=== PATIENT | male | born 1940 | race Caucasian/White ===

== ENCOUNTER 2020-09-28 16:11 | Observation (INO) | payer MEDICARE ==
[2020-09-28] MEDS ORDERED: Sodium Chloride 0.9% 10 ML Syringe FLUSH PRN (16:41)
[2020-09-28] MEDS ORDERED: Sodium Chloride 0.9% 1,000 ML IV SCH (16:45)
[2020-09-28] MEDS ORDERED: Sodium Chloride 0.9% 1,000 ML IV ONE (17:03)
--- NOTE | 2020-09-28 17:16 | PCM.HP.2 ---
H&P History of Present Illness - General Date of Service: 09/28/20 Admit Problem/Dx: Admission Diagnosis/Problem Admission Diagnosis/Problem Hypotension Source of Information: Patient, Provider History Limitations: Reports: No Limitations - History of Present Illness Initial Comments - Free Text/Narative: Murali was seen at [facility] today for post operative visit but had been having dizziness, lightheadedness since Saturday 09/23. It has progressive been getting worse. Since Saturday pm he has been getting nauseous in the evening but not vomiting. He had been taking his Diabetic and hypertensive medications as usual. He had Left total knee arthroplasty on 09/19, was discharged 09/20, surgeon was Dr Bills at [facility]. No complications. Had been doing PT/OT well but on Saturday and last few days he has been getting diaphoretic with his therapy treatments. He would sit down and drink some water and then was able to continue. He did not check his sugars at the time these events occurred. On exam today his blood pressure was 87/57 in clinic, WBC 13.0, Hgb 10.8(12 prior to surgery), platelets 456(prior were 206), Creatinine 1.5(baseline 1.2), BUN 61(previous 26), troponin 0.01, CRP pending. EKG showed RBBB with no ischemic changes per Abebe Gurrola PA-C who saw in clinic. He denies any fevers, chills, night sweats, no chest pain or shortness of breath, no abdominal pain, constipation or diarrhea. He did have 2 dark/black stools today which is new, and has not urinated much today. No rashes. His dressing was changed at his appt today, is due to see Dr Bills next week on 10/04. He was discharged with full TEDS hose to groin and has on currently. He was discharged with Aspirin bid for DVT prophylaxis. Abebe Gurrola PA-C called for direct admission for dehydration and further workup of his Leukocytosis. - Related Data Allergies/Adverse Reactions: Allergies Allergy/AdvReac Type Severity Reaction Status Date / Time No Known Allergies Allergy Verified 09/28/20 17:39 Home Medications: Home Meds Acetaminophen [Tylenol Extra Strength] 1,000 mg PO TID 09/28/20 [History] Aspirin [Aspirin EC] 325 mg PO BID 09/28/20 [History] Azelastine [Optivar 0.05% Ophth Soln] 1 drop EYEBOTH ASDIRECTED PRN 09/28/20 [History] Cyanocobalamin (Vitamin B12) [Vitamin B12] 1,000 mcg PO DAILY 09/28/20 [History] Docusate Sodium [Colace] 100 mg PO BID PRN 09/28/20 [History] Hydrocodone/Acetaminophen [Lorcet 5-325 mg Tablet] 1 - 2 each PO Q4H PRN 09/28/20 [History] Isosorbide Mononitrate [Imdur] 60 mg PO DAILY 09/28/20 [History] Lisinopril/Hydrochlorothiazide [Lisinopril-Hctz 20-12.5 mg Tab] 1 tab BID 09/28/20 [History] Vit C/Vit E AC/Lut/Copper/Zinc [Preservision Softgel] 1 each PO BID 09/28/20 [History] amLODIPine [Norvasc] 5 mg PO DAILY 09/28/20 [History] atorvaSTATin [Lipitor] 40 mg PO BEDTIME 09/28/20 [History] metFORMIN [Glucophage] 500 mg PO DAILY 09/28/20 [History] Past Medical History HEENT History: Reports: Cataract (bilateral), Glaucoma (bilateral) Cardiovascular History: Reports: CAD, Hypertension, Stents Gastrointestinal History: Reports: Colon Polyp Musculoskeletal History: Reports: Osteoarthritis (left knee) Endocrine/Metabolic History: Reports: Diabetes, Type II Oncologic (Cancer) History: Reports: Colon - Past Surgical History HEENT Surgical History: Reports: Cataract Surgery (bilateral) Cardiovascular Surgical History: Reports: Coronary Artery Stent GI Surgical History: Reports: Colon (Dr Nation, colon cancer had chemo/radiation), Hernia Repair/Other Musculoskeletal Surgical History: Reports: Hip Replacement (bilateral), Knee Replacement (left, 09/19/2020 Dr Bills) Social & Family History - Tobacco Use Tobacco Use Status *Q: Former Tobacco User (quit 01/12/1991) Tobacco Use Within Last Twelve Months: No - Alcohol Use Alcohol Use History: Yes Total Drinks Per Week Comment: 3-4 drinks/week Alcohol Use Frequency: Weekly - Living Situation & Occupation Living situation: Reports: Occupation: Retired H&P Review of Systems - Review of Systems: Review Of Systems: Comprehensive ROS is negative, except as noted in HPI. Exam - Exam Exam: See Below - Exam General: Alert, Oriented, Cooperative HEENT: PERRLA, Conjunctiva Clear, EOMI, Hearing Intact, Posterior Pharynx Clear. No: Mucosa Moist & [place] Neck: Trachea Midline. No: Lymphadenopathy Lungs: Clear to Auscultation, Normal Respiratory Effort Cardiovascular: Tachycardia GI/Abdominal Exam: Normal Bowel Sounds, Soft, Non-Tender, No Distention (Male) Exam: Deferred Rectal (Males) Exam: Deferred Extremities: Normal Capillary Refill, Pedal Edema (Full ANTONY hose BLE, 2+ LLE) Peripheral Pulses: 2+: Radial (L), Radial (R) Skin: Incision (Clean dressing in place on left knee) Neurological: Cranial Nerves Intact, Normal Speech, Normal Tone - Patient Data Lab Results Last 24 hrs: see HPI Sepsis Event Note - Evaluation Sepsis Screening Result: No Definite Risk *Q Meaningful Use (ADM) - VTE *Q VTE Mechanical Contraindications *Q: At Risk for Falls - VTE Risk Assess *Q Each Risk Factor Represents 1 Point: None Total Score 1 Point Risk Factors: 0 Each Risk Factor Represents 2 Points: None, Malignancy (present or previous) Total Score 2 Point Risk Factors: 2 Each Risk Factor Represents 3 Points: Age 75 Years or Greater Total Score 3 Point Risk Factors: 3 Each Risk Factor Represents 5 Points: Elective Major Lower Extremity Arthroplasty Total Score 5 Point Risk Factors: 5 Venous Thromboembolism Risk Factor Score *Q: 10 - Problem List (1) Leukocytosis SNOMED Code(s): 880723157, 949715351 ICD Code: D72.829 - ELEVATED WHITE BLOOD CELL COUNT, UNSPECIFIED Status: Acute Current Visit: Yes Problem Details: WBC 13.0 in clinic. (2) Hypotension due to hypovolemia SNOMED Code(s): 85601280 ICD Code: I95.89 - OTHER HYPOTENSION; E86.1 - HYPOVOLEMIA Status: Acute Current Visit: Yes Problem Details: hypotensive 87/57. (3) Dehydration SNOMED Code(s): 79616453 ICD Code: E86.0 - DEHYDRATION Status: Acute Current Visit: Yes Problem Details: Hypotensive at 87/57 in clinic. (4) ZEE (acute kidney injury) SNOMED Code(s): 31109565, 03603012 ICD Code: N17.9 - ACUTE KIDNEY FAILURE, UNSPECIFIED Status: Acute Current Visit: Yes Problem Details: Cr 1.5, baseline 1.2 (5) Black stool SNOMED Code(s): 369949803 ICD Code: K92.1 - MELENA Status: Acute Current Visit: Yes Onset Date: ~09/28/20 (6) Status post left knee replacement SNOMED Code(s): 8436744931013, 335936489, 7360610607243 ICD Code: Z96.652 - PRESENCE OF LEFT ARTIFICIAL KNEE JOINT Status: Acute Current Visit: Yes Onset Date: ~09/19/20 Problem Details: Dr Bills (7) Diabetes SNOMED Code(s): 62731951 ICD Code: E11.9 - TYPE 2 DIABETES MELLITUS WITHOUT COMPLICATIONS Status: Chronic Current Visit: Yes Qualifiers: Diabetes mellitus terminal operations manager insulin use: without assisted use (8) Hypertension SNOMED Code(s): 76177956 ICD Code: I10 - ESSENTIAL (PRIMARY) HYPERTENSION Status: Chronic Current Visit: Yes (9) CAD (coronary artery disease) SNOMED Code(s): 04789716 ICD Code: I25.10 - ATHSCL HEART DISEASE OF [place] CORONARY ARTERY W/O ANG PCTRS Status: Chronic Current Visit: Yes (10) History of colon cancer SNOMED Code(s): 292677018 ICD Code: Z85.038 - PERSONAL HISTORY OF MALIGNANT NEOPLASM OF LARGE INTESTINE Status: Chronic Current Visit: Yes Problem List Initiated/Reviewed/Updated: Yes Orders Last 24hrs: Active Orders 24 hr Category Date Time Status Patient Status [ADT] Routine ADT 09/28/20 16:42 Active Blood Glucose Check, Bedside [RC] DAILY Care 09/29/20 06:00 Active Oxygen Therapy [RC] PRN Care 09/28/20 16:42 Active Up With Assistance [RC] ASDIRECTED Care 09/28/20 16:41 Active Up to Chair [RC] ASDIRECTED Care 09/28/20 16:41 Active VTE/DVT Education [RC] Per Unit Routine Care 09/28/20 16:42 Active Vital Signs [RC] Q4H Care 09/28/20 16:42 Active OT Evaluation and Treatment [CONS] Routine Cons 09/28/20 16:41 Active PT Evaluation and Treatment [CONS] Routine Cons 09/28/20 16:41 Active Consistent Carbohydrate Diet [DIET] Diet 09/28/20 Dinner Active BASIC METABOLIC PANEL,BMP [CHEM] Routine Lab 09/29/20 06:00 Ordered CBC WITH AUTO DIFF [HEME] Routine Lab 09/29/20 06:00 Ordered CULTURE BLOOD [BC] Urgent Lab 09/28/20 16:44 Ordered CULTURE BLOOD [BC] Urgent Lab 09/28/20 16:44 Ordered UA W/MICROSCOPIC [URIN] Routine Lab 09/28/20 16:41 Ordered Sodium Chloride 0.9% [Normal Saline] 1,000 ml Med 09/28/20 17:03 Ordered IV .BOLUS Sodium Chloride 0.9% [Normal Saline] 1,000 ml Med 09/28/20 18:04 Ordered IV ASDIRECTED Sodium Chloride 0.9% [Saline Flush] Med 09/28/20 16:41 Active 10 ml FLUSH ASDIRECTED PRN Antiembolic Hose [OM.PC] Per Unit Routine Oth 09/28/20 16:42 Ordered Blood Culture x2 Reflex Set [OM.PC] Urgent Oth 09/28/20 16:41 Ordered Saline Lock Insert [OM.PC] Routine Oth 09/28/20 16:41 Ordered Resuscitation Status Routine Resus Stat 09/28/20 16:41 Ordered Medication Orders Sodium Chloride (Normal Saline) 1,000 mls @ 999 mls/hr IV .BOLUS ONE Stop: 09/28/20 18:03 Sodium Chloride (Normal Saline) 1,000 mls @ 125 mls/hr IV ASDIRECTED [place] Sodium Chloride (Sodium Chloride 0.9% 10 Ml Syringe) 10 ml FLUSH ASDIRECTED PRN PRN Reason: Keep Vein Open Assessment/Plan Comment:: 1. Admit for observation for hypotension, dehydration, ZEE, s/p L TKA, black stools. 2. Hypotension/dehydration/ZEE: NS 1 liter bolus, then at 125 ml/hr, recheck BMP tomorrow. 3. Black stools/history of colon cancer/on aspirin s/p TKA: occult stool x 3. CBC tomorrow. Hgb 10.8 in clinic. 4. s/p L TKA: Aspirin bid, PT/OT evaluate & treat. He had been taking Extra Strength Tylenol as needed pain as Hydrocodone/APAP that was prescribed made him feel loopy so he stopped taking. 5. Leukocytosis: UA with micro, BC x 2 for possible source, may also be secondary to dehydration, afebrile. Continue to monitor and adjust as needed. 6. Diet: Regular. 7. DM: eats regular diet at home, on oral medications will continue here, blood glucose checks daily. 8. DVT prophylaxis: Full bilateral TEDS, use patient's own. Aspirin bid. 9. CODE STATUS: FULL. 10. Discharge planning: anticipate 24-48 hours for IV fluids and further studies. His is bringing his medications in for us to use. - Mortality Measure Prognosis:: Good
[2020-09-28] MEDS ORDERED: Docusate Sodium 100 MG Cap PO PRN (18:07)
[2020-09-28] MEDS: Sodium Chloride 0.9% 1,000 ML IV SCH (18:50)
[2020-09-28] MEDS ORDERED: atorvaSTATin 40 MG Tab***OWN MED PO ONE (22:30)
[2020-09-29] MEDS: Sodium Chloride 0.9% 1,000 ML IV SCH ×3 (02:45→19:57)
[2020-09-29] MEDS ORDERED: Aspirin 325 MG Tab.EC *PTOM PO SCH (09:00)
[2020-09-29] MEDS: metFORMIN 500 MG Tab *PTOM PO SCH (09:15)
[2020-09-29] MEDS: Pantoprazole 40 MG Tab.CR PO SCH (10:25)
[2020-09-29] MEDS: Aspirin 81 MG Tab.EC PO SCH ×2 (10:25→20:56)
--- NOTE | 2020-09-29 10:53 | PCM.PN ---
- General Info Date of Service: 09/29/20 Subjective Update: Murali states slept well, had another black stool. Occult was positive last night, aspirin held. BP improved today, held BP medications last night. No pain. No chest pain, abdominal pain. No nausea or vomiting. Urinating well. Spoke with Telma, Dr Bills's PA, he was on Aspirin 325 mg daily since he was already on a full aspirin they had just increased to bid rather than doing the usual protocol of Aspirin 81 mg bid for 4 weeks. Discussed positive occult stools and drop in Hgb since surgery, they were in agreement with reducing Aspirin to 81 mg bid and add PPI. He is to follow up with Telma on Wednesday 10/04. - Patient Data Vitals - Most Recent: Last Vital Signs Temp 97.8 F 09/29/20 08:00 Pulse 96 09/29/20 08:00 Resp 14 09/29/20 08:00 BP 148/70 H 09/29/20 08:00 Pulse Ox 97 09/29/20 08:00 Orthostatic Blood Pressure [ 148/78 Standing] Orthostatic Blood Pressure [ 140/73 Sitting] Orthostatic Blood Pressure [ 126/68 Supine] Weight - Most Recent: 232 lb 8 oz I&O - Last 24 Hours: Intake & Output 09/28/20 09/29/20 09/29/20 22:59 06:59 14:59 Intake Total 1900 980 Output Total 200 900 Balance 1700 80 Lab Results Last 24 Hours: Laboratory Results - last 24 hr 09/28/20 09/29/20 09/29/20 Range/Units 18:52 06:00 06:00 WBC 8.8 (3.2-10.1) x10-3/uL RBC 3.01 L (3.90-5.90) x10(6)uL Hgb 9.1 L (12.9-17.7) g/dL Hct 26.6 L (38.3-50.1) % MCV 88.2 (80.8-98.7) fL MCH 30.1 (27.0-33.3) pg MCHC 34.1 (28.7-35.3) g/dL RDW 13.4 (12.4-15.0) % Plt Count 386 (117-477) x10(3)uL MPV 6.5 L (6.7-11.0) fL Neut % (Auto) 70.8 (40.3-71.8) % Lymph % (Auto) 16.4 (15.8-45.3) % [place] % (Auto) 8.4 (5.5-15.2) % Eos % (Auto) 3.6 (0.1-6.8) % Baso % (Auto) 0.8 (0.3-3.8) % Neut # (Auto) 6.2 (1.7-6.9) x10-3/uL Lymph # (Auto) 1.4 (0.5-4.5) x10-3/uL [place] # (Auto) 0.7 (0.0-1.2) x10-3/uL Eos # (Auto) 0.3 (0.0-0.6) x10-3/uL Baso # (Auto) 0.1 (0.0-0.3) x10-3/uL Sodium 145 (135-145) mmol/L Potassium 4.2 (3.5-5.3) mmol/L Chloride 108 (100-110) mmol/L Carbon Dioxide 30 (21-32) mmol/L BUN 59 H (7-18) mg/dL Creatinine 1.1 (0.70-1.30) mg/dL Est Cr Clr Drug Dosing 63.56 mL/min Estimated GFR (MDRD) > 60 (>60) BUN/Creatinine Ratio 53.6 H (9-20) Glucose 157 H (80-116) mg/dL Calcium 8.4 L (8.6-10.2) mg/dL Urine Color Yellow (YELLOW) Urine Appearance Clear (CLEAR) Urine pH 5.0 (5.0-6.5) Ur Specific [place] 1.015 (1.010-1.025) Urine Protein Negative (NEGATIVE) mg/dL Urine Glucose (UA) Normal (NORMAL) mg/dL Urine Ketones Negative (NEGATIVE) mg/dL Urine Occult Blood Negative (NEGATIVE) Urine Nitrite Negative (NEGATIVE) Urine Bilirubin Small H (NEGATIVE) Urine Urobilinogen Normal (NEGATIVE) mg/dL Ur Leukocyte Esterase Negative (NEGATIVE) U Hyaline Cast (Auto) Few H (NS) Urine RBC 0-5 (0-5) Urine WBC 0-5 (0-5) Ur Squamous Epith Cells Few H (NS,R,O) Urine Bacteria Few H (NS) Ian Results Last 24 Hours: Microbiology 09/28/20 20:00 Occult Blood - Preliminary Stool / Feces Med Orders - Current: Current Medications Acetaminophen (Acetaminophen 500 Mg TabOwn Med) 1,000 mg PO TID [facility] Last Admin: 09/29/20 09:15 Dose: 1,000 mg Documented by: Aspirin (Aspirin 81 Mg Tab.Ec) 81 mg PO BID [facility] Last Admin: 09/29/20 10:25 Dose: 81 mg Documented by: Atorvastatin Calcium (Atorvastatin 40 Mg TabOwn Med) 40 mg PO BEDTIME [facility] Docusate Sodium (Docusate Sodium 100 Mg Cap) 100 mg PO BID PRN PRN Reason: Constipation Sodium Chloride (Normal Saline) 1,000 mls @ 125 mls/hr IV ASDIRECTED [facility] Last Admin: 09/29/20 02:45 Dose: 125 mls/hr Documented by: Metformin HCl (Metformin 500 Mg Tab *Ptom) 500 mg PO DAILY [facility] Last Admin: 09/29/20 09:15 Dose: 500 mg Documented by: Pantoprazole Sodium (Pantoprazole 40 Mg Tab.Cr) 40 mg PO DAILY@0600 [facility] Last Admin: 09/29/20 10:25 Dose: 40 mg Documented by: Sodium Chloride (Sodium Chloride 0.9% 10 Ml Syringe) 10 ml FLUSH ASDIRECTED PRN PRN Reason: Keep Vein Open Discontinued Medications Acetaminophen (Acetaminophen 500 Mg TabOwn Med) 1,000 mg PO NOW ONE Stop: 09/28/20 23:16 Last Admin: 09/28/20 23:12 Dose: 1,000 mg Documented by: Atorvastatin Calcium (Atorvastatin 40 Mg TabOwn Med) 40 mg PO NOW ONE Stop: 09/28/20 22:31 Last Admin: 09/28/20 22:28 Dose: 40 mg Documented by: Sodium Chloride (Normal Saline) 1,000 mls @ 125 mls/hr IV ASDIRECTED [facility] Sodium Chloride (Normal Saline) 1,000 mls @ 999 mls/hr IV .BOLUS ONE Stop: 09/28/20 18:03 Last Admin: 09/28/20 17:40 Dose: 999 mls/hr Documented by: - Exam General: Alert, Oriented, Cooperative Lungs: Clear to Auscultation, Normal Respiratory Effort Cardiovascular: Regular Rate, Regular Rhythm GI/Abdominal Exam: Normal Bowel Sounds, Soft, Non-Tender, No Distention Extremities: Pedal Edema (L>R, Full TEDS in place) Peripheral Pulses: 2+: Radial (L), Radial (R) Wound/Incisions: Dressing Dry and Intact (left knee) - Patient Data Lab Results Last 24 hrs: Laboratory Results - last 24 hr 09/28/20 09/29/20 09/29/20 Range/Units 18:52 06:00 06:00 WBC 8.8 (3.2-10.1) x10-3/uL RBC 3.01 L (3.90-5.90) x10(6)uL Hgb 9.1 L (12.9-17.7) g/dL Hct 26.6 L (38.3-50.1) % MCV 88.2 (80.8-98.7) fL MCH 30.1 (27.0-33.3) pg MCHC 34.1 (28.7-35.3) g/dL RDW 13.4 (12.4-15.0) % Plt Count 386 (117-477) x10(3)uL MPV 6.5 L (6.7-11.0) fL Neut % (Auto) 70.8 (40.3-71.8) % Lymph % (Auto) 16.4 (15.8-45.3) % [place] % (Auto) 8.4 (5.5-15.2) % Eos % (Auto) 3.6 (0.1-6.8) % Baso % (Auto) 0.8 (0.3-3.8) % Neut # (Auto) 6.2 (1.7-6.9) x10-3/uL Lymph # (Auto) 1.4 (0.5-4.5) x10-3/uL [place] # (Auto) 0.7 (0.0-1.2) x10-3/uL Eos # (Auto) 0.3 (0.0-0.6) x10-3/uL Baso # (Auto) 0.1 (0.0-0.3) x10-3/uL Sodium 145 (135-145) mmol/L Potassium 4.2 (3.5-5.3) mmol/L Chloride 108 (100-110) mmol/L Carbon Dioxide 30 (21-32) mmol/L BUN 59 H (7-18) mg/dL Creatinine 1.1 (0.70-1.30) mg/dL Est Cr Clr Drug Dosing 63.56 mL/min Estimated GFR (MDRD) > 60 (>60) BUN/Creatinine Ratio 53.6 H (9-20) Glucose 157 H (80-116) mg/dL Calcium 8.4 L (8.6-10.2) mg/dL Urine Color Yellow (YELLOW) Urine Appearance Clear (CLEAR) Urine pH 5.0 (5.0-6.5) Ur Specific [place] 1.015 (1.010-1.025) Urine Protein Negative (NEGATIVE) mg/dL Urine Glucose (UA) Normal (NORMAL) mg/dL Urine Ketones Negative (NEGATIVE) mg/dL Urine Occult Blood Negative (NEGATIVE) Urine Nitrite Negative (NEGATIVE) Urine Bilirubin Small H (NEGATIVE) Urine Urobilinogen Normal (NEGATIVE) mg/dL Ur Leukocyte Esterase Negative (NEGATIVE) U Hyaline Cast (Auto) Few H (NS) Urine RBC 0-5 (0-5) Urine WBC 0-5 (0-5) Ur Squamous Epith Cells Few H (NS,R,O) Urine Bacteria Few H (NS) Result Diagrams: 09/29/20 06:00 09/29/20 06:00 Ian Results Last 24 hrs: Microbiology 09/28/20 20:00 Occult Blood - Preliminary Stool / Feces Sepsis Event Note - Evaluation Sepsis Screening Result: No Definite Risk - Focused Exam Vital Signs: Vital Signs Temp Pulse Resp BP Pulse Ox 09/29/20 08:00 97.8 F 96 14 148/70 H 97 09/29/20 06:00 98.1 F 83 18 128/73 94 L 09/28/20 23:28 98.0 F 84 18 133/80 95 - Problem List & Annotations (1) Leukocytosis SNOMED Code(s): 983434130, 272736729 Code(s): D72.829 - ELEVATED WHITE BLOOD CELL COUNT, UNSPECIFIED Status: Resolved Current Visit: Yes Annotation/Comment:: WBC 13.0 in clinic, today 8.8. No source of infection. UA was negative. Incision C/D/I. Resolved with IVF. (2) Hypotension due to hypovolemia SNOMED Code(s): 82368085 Code(s): I95.89 - OTHER HYPOTENSION; E86.1 - HYPOVOLEMIA Status: Resolved Current Visit: Yes Annotation/Comment:: hypotensive 87/57 on admission. This morning 120/73 prior to medications. (3) Dehydration SNOMED Code(s): 28464443 Code(s): E86.0 - DEHYDRATION Status: Acute Current Visit: Yes Annotation/Comment:: Improved. (4) ZEE (acute kidney injury) SNOMED Code(s): 58187472, 70735827 Code(s): N17.9 - ACUTE KIDNEY FAILURE, UNSPECIFIED Status: Acute Current Visit: Yes Annotation/Comment:: Cr 1.5, improved to 1.1, BUN still elevated at 59. (5) Black stool SNOMED Code(s): 230013309 Code(s): K92.1 - MELENA Status: Acute Current Visit: Yes Onset Date: ~09/28/20 Annotation/Comment:: positive occult. Decrease Asa to 81 mg bid, add Protonix 40 mg daily. (6) Status post left knee replacement SNOMED Code(s): 8869126348777, 620156751, 5156851361269 Code(s): Z96.652 - PRESENCE OF LEFT ARTIFICIAL KNEE JOINT Status: Acute Current Visit: Yes Onset Date: ~09/19/20 Annotation/Comment:: Dr Bills (7) Diabetes SNOMED Code(s): 70079872 Code(s): E11.9 - TYPE 2 DIABETES MELLITUS WITHOUT COMPLICATIONS Status: Chronic Current Visit: Yes Qualifiers: Diabetes mellitus fdc insulin use: without fdc use (8) Hypertension SNOMED Code(s): 65087770 Code(s): I10 - ESSENTIAL (PRIMARY) HYPERTENSION Status: Chronic Current Visit: Yes (9) CAD (coronary artery disease) SNOMED Code(s): 83281643 Code(s): I25.10 - ATHSCL HEART DISEASE OF [place] CORONARY ARTERY W/O ANG PCTRS Status: Chronic Current Visit: Yes (10) History of colon cancer SNOMED Code(s): 280810177 Code(s): Z85.038 - PERSONAL HISTORY OF MALIGNANT NEOPLASM OF LARGE INTESTINE Status: Chronic Current Visit: Yes - Problem List Review Problem List Initiated/Reviewed/Updated: Yes - My Orders Last 24 Hours: My Active Orders 09/28/20 Dinner Regular Diet [DIET] 09/28/20 16:41 Up With Assistance [RC] ASDIRECTED Up to Chair [RC] ASDIRECTED OT Evaluation and Treatment [CONS] Routine PT Evaluation and Treatment [CONS] Routine Sodium Chloride 0.9% [Saline Flush] 10 ml FLUSH ASDIRECTED PRN Blood Culture x2 Reflex Set [OM.PC] Urgent Saline Lock Insert [OM.PC] Routine Resuscitation Status Routine 09/28/20 16:42 Patient Status [ADT] Routine Oxygen Therapy [RC] PRN Vital Signs [RC] 08,12,16,20,00,04 Antiembolic Hose [OM.PC] Per Unit Routine 09/28/20 16:58 CULTURE BLOOD [BC] Urgent 09/28/20 17:05 CULTURE BLOOD [BC] Urgent 09/28/20 18:04 Sodium Chloride 0.9% [Normal Saline] 1,000 ml IV ASDIRECTED 09/28/20 18:07 Docusate Sodium [Colace] 100 mg PO BID PRN 09/28/20 20:00 OCCULT BLOOD SCREEN [OP] Routine 09/28/20 21:00 Acetaminophen [Tylenol Extra Strength] 1,000 mg PO TID 09/29/20 06:00 Blood Glucose Check, Bedside [RC] DAILY OCCULT BLOOD SCREEN [OP] Routine 09/29/20 09:00 metFORMIN [Glucophage] 500 mg PO DAILY 09/29/20 09:45 Pantoprazole [ProTONIX] 40 mg PO DAILY@0600 09/29/20 10:00 Aspirin [Halfprin] 81 mg PO BID 09/29/20 21:00 atorvaSTATin [Lipitor] 40 mg PO BEDTIME - Plan Plan:: 1. Hypotension/dehydration/ZEE: Improving, NS 125 ml/hr, recheck BMP tomorrow. 2. Black stools/history of colon cancer/on aspirin s/p TKA: occult stool positive. Hgb 9.1, repeat CBC tomorrow. Add Protonix 40 mg daily. 3. s/p L TKA: Aspirin decrease to 81 mg bid, add Protonix 40 mg daily x 4 weeks. Follow up with Telma at Dr Bills's office next Wednesday 10/04. PT/OT evaluate & treat. He had been taking Extra Strength Tylenol as needed pain. 4. Leukocytosis: UA negative. BC pending. secondary to dehydration, afebrile. Continue to monitor and adjust as needed. 5. DVT prophylaxis: Full bilateral TEDS, use patient's own. Aspirin 81 bid. 6. Discharge planning: anticipate another 24 hours for IV fluids, if Hgb remains stable and blood pressures are controlled, possible discharge tomorrow.
[2020-09-29] MEDS ORDERED: Lisinopril 20 MG Tab PO ONE (11:15)
[2020-09-29] MEDS: amLODIPine 5 MG Tab *PTOM PO SCH (11:49)
[2020-09-29] MEDS: Isosorbide Mononitrate 60 MG Tab.ER *PTOM PO SCH (11:50)
[2020-09-29] MEDS ORDERED: atorvaSTATin 40 MG Tab***OWN MED PO SCH (21:00)
[2020-09-30] MEDS: Sodium Chloride 0.9% 1,000 ML IV SCH (03:41)
[2020-09-30] MEDS: Pantoprazole 40 MG Tab.CR PO SCH ×2 (06:08→06:41)
[2020-09-30] MEDS: metFORMIN 500 MG Tab *PTOM PO SCH (08:30)
[2020-09-30] MEDS: Aspirin 81 MG Tab.EC PO SCH (08:32)
[2020-09-30] MEDS: Isosorbide Mononitrate 60 MG Tab.ER *PTOM PO SCH (08:33)
[2020-09-30] MEDS: amLODIPine 5 MG Tab *PTOM PO SCH (08:33)
--- NOTE | 2020-09-30 20:18 | DISCH ---
DISCHARGE DATE: 09/30/2020 ADMISSION DIAGNOSES: 1. Acute kidney injury. 2. Dehydration. 3. Status post left knee replacement. 4. Hypertension. 5. Type 2 diabetes. DISCHARGE DIAGNOSES: 1. Dehydration, improved. 2. Anemia. 3. Melena stools. 4. Hypertension. 5. Type 2 diabetes. 6. Status post knee replacement. BRIEF HISTORY: Murali is a 79-year-old male who had knee replacement on September 19, was admitted 2 days ago for lightheadedness, acute kidney injury in the hospital. He was found to have black tarry stools x2. Dr. Hopkins contacted Orthopedics and aspirin was reduced to 81 mg b.i.d. and Protonix was added. He got fluids most of his stay. His hemoglobin dropped down to 8.2, but thought to be dilutional. He did not have any signs of active bleeding. His vital signs have remained stable including his blood pressure which was 134/76 at discharge. I discharged him home. I stopped lisinopril-hydrochlorothiazide. We will continue with Norvasc. We will also continue the PPI and aspirin. Follow up with PCP on Saturday, and has orthopedic appointment on Saturday. I spent more than 35 minutes in the discharge of the patient. /[id number] JENELLE/RIVKA
== END 2020-09-30 10:25 | disposition home or self-care (01) ==
LOC: FB.MS 16:23
PROVIDERS: ADMIT Family Medicine; ATTEND Family Medicine
DX: E86.0 Dehydration (principal); I95.89 Other hypotension; E86.1 Hypovolemia; N17.9 Acute kidney failure, unspecified; D64.9 Anemia, unspecified; K92.1 Melena; E11.9 Type 2 diabetes mellitus without complications; I10 Essential (primary) hypertension; I25.10 Atherosclerotic heart disease of native coronary artery without angina pectoris; D72.829 Elevated white blood cell count, unspecified; Z87.891 Personal history of nicotine dependence; Z79.82 Long term (current) use of aspirin; Z79.899 Other long term (current) drug therapy; Z86.010 Personal history of colon polyps; Z85.038 Personal history of other malignant neoplasm of large intestine; Z98.890 Other specified postprocedural states; Z96.652 Presence of left artificial knee joint
CPT/HCPCS: 36415; 80048; 81001; 82270; 85025; 87040; 97161-GP; A9270-GY; G0378; G0379; J7030

== ENCOUNTER 2021-01-22 11:23 | Emergency (ER) | payer MEDICARE ==
[2021-01-22] MEDS ORDERED: Aspirin 81 MG Tab.Chew PO ONE (11:25)
--- NOTE | 2021-01-22 11:45 | EDM.PDOC ---
ED HPI GENERAL MEDICAL PROBLEM - General Stated Complaint: abnormal ekg Time Seen by Provider: 01/22/21 11:36 Source of Information: Reports: Patient History Limitations: Reports: No Limitations - History of Present Illness INITIAL COMMENTS - FREE TEXT/NARRATIVE: 80-year-old male who presents to the emergency department as a transfer from the walk-in clinic secondary to elevated troponin and abnormal EKG. The patient tells me that beginning on 01/18/2021 at about noon he had sudden onset of profuse diaphoresis associated with feeling lightheaded and near syncopal and when he would rest and become recumbent, his symptoms would go away and then when he tried to get up and walk around his symptoms would come back. He reports he has been feeling very off balance and dizzy and has had 3 falls since 01/18/2021. There were was no syncopal episode associated with any of these falls. He reports that the diaphoresis has been intermittent as well. He has had no chest pain or feelings of shortness of breath. He has had no nausea or vomiting. There has been no blood in his stools. His stools are dark but he is on iron supplementation and the stools are not changed from previous. He also developed hiccups on Saturday afternoon following this episode and he has developed an irritated throat pain that feels somewhat raw and a mild cough since then as well. The hiccups have been intermittent but are present now. He has been able to eat and drink normally there have been no fevers or chills. He does feel today that he is feeling better than he has on any other day in that he is feeling less dizzy with sitting and standing and has actually been able to walk around with less symptoms than before. He had orthostatic vital signs performed at the walk-in clinic and they were normal and static changes. Apparently, the patient had episodes in October/November where he had diaphoresis and dizziness and actually had a syncopal episode and was admitted to [facility] in [place] have an anemia and GI blood loss. He had a fairly extensive workup and it was felt that he had areas in his colon that were bleeding that will were addressed by the climatology professor. The patient apparently had his blood rechecked on 01/19/2021 and he initially told me his hemoglobin was 8.8 but apparently was 14. He has never had any chest pain or abdominal pain associated with this. He's not had any arm or back pain associated with this. In the walk-in clinic he had an EKG that was performed and looks unchanged from previous EKG in September 2020. He had blood tests performed which showed a white blood cell count of 8.2 and hemoglobin of 13.1 with a normal platelet count. Profile was normal with BUN of 19 and a creatinine of 1.2. His glucose was 139. His sodium was 143 and his potassium was 4.5. LFTs were performed and they were normal. The troponin was performed and it was 270.1. This is the high sensitivity troponin and the upper limit of normal is 60. He was given aspirin 324 mg orally. No dysuria or hematuria there are no other associated signs or symptoms. There are no other modifying factors. Onset: Other Duration: Constant (01/18/2021 is somewhat improved today.) Location: Reports: Other (No pain.) Quality: Reports: Other (Not applicable) Improves with: Reports: Rest (And lying down) Worsens with: Reports: Other (Sitting and standing and trying to walk), Movement Context: Reports: Other (As above) Associated Symptoms: Reports: No Other Symptoms (Except as above.) Treatments RN CORRECTIONS: Reports: Other (see below) (Nothing except as above.) - Related Data Allergies Allergy/AdvReac Type Severity Reaction Status Date / Time No Known Allergies Allergy Verified 09/28/20 17:39 Home Meds: Home Meds Acetaminophen [Tylenol Extra Strength] 1,000 mg PO TID 09/28/20 [History] Azelastine [Optivar 0.05% Ophth Soln] 1 drop EYEBOTH ASDIRECTED PRN 09/28/20 [History] Cyanocobalamin (Vitamin B12) [Vitamin B12] 1,000 mcg PO DAILY 09/28/20 [History] Docusate Sodium [Colace] 100 mg PO BID PRN 09/28/20 [History] Hydrocodone/Acetaminophen [Lorcet 5-325 mg Tablet] 1 - 2 each PO Q4H PRN 09/28/20 [History] Isosorbide Mononitrate [Imdur] 60 mg PO DAILY 09/28/20 [History] Vit C/Vit E AC/Lut/Copper/Zinc [Preservision Lutein Softgel] 1 each PO BID 09/28/20 [History] amLODIPine [Norvasc] 5 mg PO DAILY 09/28/20 [History] atorvaSTATin [Lipitor] 40 mg PO BEDTIME 09/28/20 [History] metFORMIN [Glucophage] 500 mg PO DAILY 09/28/20 [History] Aspirin [Halfprin] 81 mg PO BID #30 tab.ec 09/30/20 [Rx] Pantoprazole Sodium [Protonix] 40 mg PO DAILY #30 tablet. 09/30/20 [Rx] Past Medical History HEENT History: Reports: Cataract (bilateral), Glaucoma (bilateral) Cardiovascular History: Reports: CAD, Hypertension, Stents Other Cardiovascular History: MS 1990 Gastrointestinal History: Reports: Colon Polyp Genitourinary History: Reports: Renal Disease Musculoskeletal History: Reports: Osteoarthritis (left knee) Endocrine/Metabolic History: Reports: Diabetes, Type II Oncologic (Cancer) History: Reports: Colon - Infectious Disease History Infectious Disease History: Reports: Chicken Pox, Measles, Mumps, Shingles - Past Surgical History HEENT Surgical History: Reports: Cataract Surgery (bilateral) Cardiovascular Surgical History: Reports: Coronary Artery Stent GI Surgical History: Reports: Colon (Dr Nation, colon cancer had chemo/radiation), Colonoscopy, EGD, Hernia Repair/Other Musculoskeletal Surgical History: Reports: Hip Replacement (bilateral), Knee Replacement (left, 09/19/2020 Dr Bills) Social & Family History - Tobacco Use Tobacco Use Status *Q: Former Tobacco User (Quit in 1990) - Caffeine Use Caffeine Use: Reports: Coffee, Soda - Alcohol Use Alcohol Use History: Yes Alcohol Use Frequency: Socially - Living Situation & Occupation Living situation: Reports: Occupation: Retired (manual arts teacher) ED ROS GENERAL - Review of Systems Review Of Systems: See Below Constitutional: Reports: Diaphoresis. Denies: Fever, Chills, Malaise HEENT: Reports: Throat Pain. Denies: Throat Swelling Respiratory: Reports: Cough. Denies: Shortness of Breath, Hemoptysis Cardiovascular: Reports: Lightheadedness. Denies: Chest Pain, Syncope GI/Abdominal: Denies: Abdominal Pain, Nausea, Vomiting : Denies: Dysuria, Frequency, Hematuria Musculoskeletal: Reports: Neck Pain (Anterior neck pain), Back Pain (Chronic low back pain). Denies: Arm Pain Skin: Reports: Diaphoresis. Denies: Rash, Wound Neurological: Reports: Dizziness. Denies: Headache, Syncope Psychiatric: Denies: Anxiety, Confusion Hematologic/Lymphatic: Denies: Easy Bleeding, Easy Bruising Immunologic: Reports: Other (Patient has been fully vaccinated against Covid and has recently received the Covid booster.) ED EXAM, GENERAL - Physical Exam Exam: See Below Exam Limited By: No Limitations General Appearance: Alert, WD/WN, No Apparent Distress Eye Exam: Bilateral Eye: EOMI, Normal Inspection (Sclera are anicteric), PERRL Ears: Normal External Exam, Hearing Grossly Normal Ear Exam: Bilateral Ear: Auricle Normal Nose: Normal Inspection, Normal Mucosa, No Blood Throat/Mouth: Normal Inspection, Normal Lips, Normal Oropharynx, Normal Voice, No Airway Compromise Head: Atraumatic, Normocephalic Neck: Normal Inspection, Supple, Non-Tender, Full Range of Motion Respiratory/Chest: No Respiratory Distress, Lungs Clear, Normal Breath Sounds, No Accessory Muscle Use, Chest Non-Tender Cardiovascular: Normal Peripheral Pulses, Regular Rate, Rhythm, No Murmur Peripheral Pulses: 2+: Radial (L), Radial (R), Dorsalis Pedis (L), Dorsalis Pedis (R) GI/Abdominal: Normal Bowel Sounds, Soft, Non-Tender, No Mass Back Exam: Normal Inspection. 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.) QT: Prolonged Comparison: No Change (Compared to an EKG performed on 09/01/2020 at an outside facility that was scanned into our system, there are no significant changes from an EKG.) Course - Vital Signs Last Recorded V/S: Last Vital Signs Temp 36.4 C 01/22/21 11:23 Pulse 64 01/22/21 11:23 Resp 18 01/22/21 11:23 BP 139/79 01/22/21 11:23 Pulse Ox 95 01/22/21 11:23 - Orders/Labs/Meds Orders: Active Orders 24 hr Category Date Time Status Chest 1V Frontal [CR] Stat Exams 01/22/21 12:23 Taken Labs: Laboratory Tests 01/22/21 Range/Units 12:30 SARS-CoV-2 RNA ([facility]) Negative (NEGATIVE) Meds: Medications Discontinued Medications Generic Name Dose Route Start Last Admin Trade Name Ortiz PRN Reason Stop Dose Admin Chlorpromazine HCl 25 mg 01/22/21 12:18 01/22/21 12:23 Chlorpromazine 25 Mg/Ml Amp IM 01/22/21 12:19 25 mg ONETIME ONE Administration - Radiology Interpretation Free Text/Narrative:: Portable chest x-ray shows no acute disease per my read. - Re-Assessments/Exams Free Text/Narrative Re-Assessment/Exam: 01/22/21 12:25: The patient was sent to me from the walk-in clinic and pretty much all of the workup had been done. I interviewed the patient and examined him and with his troponin being elevated and his recent GI bleed with similar symptoms to what he was having before and with the near syncope and significant dizziness and diaphoresis, I felt that he would need ALT specially services and GI specially services which are not available at [facility]. I had discussed this with the family and they're in agreement with this and I called [facility] and discussed the patient's case with Dr. Martin, hospitalist, to accept the patient in transfer. He has requested that we do a rapid Covid test and that we also do a chest x-ray. As long as the patient's rapid Covid test is negative, they would be able to accept the patient. The patient would need to be transferred via [facility] ambulance service continued cardiac monitoring and hemodynamic monitoring. I will give the patient Thorazine 25 mg IM for his hiccups. 01/22/21 13:45: Rapid Covid test is negative. The patient remains hemodynamic stable. [facility] does have a bed for the patient and the patient will need to be transferred via [facility] ambulance to them for direct admission. Departure - Departure Time of Disposition: 14:15 Disposition: DC/Tfer to Acute Hospital 02 Condition: Fair (Stable) Clinical Impression: Near syncope, Dizziness, Elevated troponin I level - Discharge Information Referrals: Sumanth Pascal MD [Primary Care Provider] - Sepsis Event Note (ED) - Focused Exam Vital Signs: Vital Signs Temp Pulse Resp BP Pulse Ox 01/22/21 11:23 36.4 C 64 18 139/79 95 - My Orders Last 24 Hours: My Active Orders 01/22/21 12:23 Chest 1V Frontal [CR] Stat - Assessment/Plan Last 24 Hours: My Active Orders 01/22/21 12:23 Chest 1V Frontal [CR] Stat
[2021-01-22] MEDS ORDERED: Aspirin 81 MG Tab.Chew ONE (17:32)
--- NOTE | 2021-01-23 11:41 | CR ---
CHEST ONE VIEW INDICATION: Hiccups, lightheaded, dizzy. FINDINGS: An AP portable upright view of the chest 01/22/21 - no comparisons. Overlying EKG leads are noted. The heart does not appear enlarged. The aorta is tortuous with calcification in the arch. Heavy markings are noted in the lower lung phan which could be on the basis of fibrosis, although patchy bronchopneumonia cannot be excluded. However, no gross consolidating pneumonia or definite pleural effusion was identified. MTDD
== END 2021-01-22 14:15 ==
LOC: FB.ED 11:23
DX: R55 Syncope and collapse (principal); R42 Dizziness and giddiness; R79.89 Other specified abnormal findings of blood chemistry; I45.10 Unspecified right bundle-branch block; I25.10 Atherosclerotic heart disease of native coronary artery without angina pectoris; I10 Essential (primary) hypertension; I25.2 Old myocardial infarction; M19.90 Unspecified osteoarthritis, unspecified site; E11.9 Type 2 diabetes mellitus without complications; Z87.891 Personal history of nicotine dependence; Z79.82 Long term (current) use of aspirin; Z79.84 Long term (current) use of oral hypoglycemic drugs; Z79.899 Other long term (current) drug therapy; Z20.822 Contact with and (suspected) exposure to COVID-19
CPT/HCPCS: 71045; 93005; 93010; 96372; 99283; 99285; A9270; J3230; U0002

== ENCOUNTER 2024-06-20 14:11 | Inpatient (IN) | payer MEDICARE ==
[2024-06-20 14:25] LABS: HEMOGLOBIN 16.2 g/dL (12.9-17.7); MEAN CORPUSCULAR HEMOGLOBIN 29.2 pg (27.0-33.3); RED CELL DISTRIBUTION WIDTH 14.5 % (12.4-15.0)
[2024-06-20 14:28] LABS: HEMATOCRIT 48.3 % (38.3-50.1); MEAN CORPUSCULAR HGB CONC 33.4 g/dL (28.7-35.3); MEAN CORPUSCULAR VOLUME 87.3 fL (80.8-98.7); PLATELET COUNT,PLT 252 x10(3)uL (117-477); RED BLOOD CELL COUNT 5.54 x10(6)uL (3.90-5.90); WHITE BLOOD CELL COUNT,WBC 12.8 x10-3/uL (3.2-10.1)
[2024-06-20 14:29] LABS: BLOOD UREA NITROGEN,BUN 21 mg/dL (7-18); BUN/CREATININE RATIO 16.2 (9-20); CARBON DIOXIDE,CO2 27 mmol/L (21-32); CHLORIDE,CL 106 mmol/L (100-110); CREATININE 1.3 mg/dL (0.70-1.30); ESTIMATED GFR 55 mL/min (>60); GLUCOSE RANDOM 210 mg/dL (80-116); POTASSIUM,K 4.2 mmol/L (3.5-5.3); SODIUM,NA 142 mmol/L (135-145)
[2024-06-20 14:35] LABS: ALANINE AMINOTRANSFERASE,ALT 34 U/L (12-36); ALKALINE PHOSPHATASE 136 IU/L (56-112); ASPARTATE AMNIOTRANSFERASE,AST 19 IU/L (5-25); BILIRUBIN TOTAL 0.7 mg/dL (0.1-1.3); PROTEIN TOTAL,TP 8.2 g/dL (6.0-8.0)
[2024-06-20] MEDS: Sodium Chloride 0.9% 1,000 ML IV ONE ×2 (14:37→14:45)
[2024-06-20 14:41] LABS: EOSINOPHILS PERCENT MAN 5 % (0-5); LYMPHOCYTES PERCENT MAN 5 % (13-37); MONOCYTES PERCENT MAN 5 % (4-12); SEG NEUTROPHILS PERCENT MAN 85 % (46-82)
[2024-06-20 14:43] LABS: PRO B-TYPE NATRIUR PEPT,BNPPRO 367 pg/mL (<=450)
[2024-06-20 14:45] LABS: C-REACTIVE PROTEIN < 0.50 mg/dL (<0.50); TROPONIN I 130.2 pg/mL (4.0-60.3)
[2024-06-20 15:09] LABS: PROTHROMBIN TIME 10.4 sec (9.0-11.1); PTT,PARTIAL THROMBOPLSTIN TIME 23.2 SECONDS (24.4-33.2)
[2024-06-20] MEDS: Iopamidol 755 Mg/ML 100 ML Bottle IV SCH (15:17)
[2024-06-20] MEDS: Magnesium Sulf 1 GM/2 mL SDV 1 GM in Sodium Chloride 0.9% 50 ML IV ONE (15:59)
[2024-06-20] MEDS ORDERED: Melatonin 3 MG Tab PO PRN (17:44)
[2024-06-20 17:59] LABS: BILIRUBIN,URINE NEGATIVE (NEGATIVE); GLUCOSE,URINE >1000 mg/dL (NORMAL); KETONES,URINE NEGATIVE (NEGATIVE); LEUKOCYTE ESTERASE,URINE MODERATE (NEGATIVE); NITRITE,URINE NEGATIVE (NEGATIVE); OCCULT BLOOD,URINE NEGATIVE (NEGATIVE); PROTEIN,URINE NEGATIVE (NEGATIVE); UROBILINOGEN,URINE NORMAL (NEGATIVE)
[2024-06-20 18:02] LABS: APPEARANCE,URINE CLEAR (CLEAR); BACTERIA,URINE FEW (NS); COLOR,URINE YELLOW (YELLOW); RBC,URINE 0-5 (0-5); SQUAMOUS EPITHELIAL CELLS,UR FEW (NS,R,O)
[2024-06-20] MEDS: Tranexamic Acid in NACL,ISO-OS 100 ML IV ONE ×2 (18:19→18:32)
[2024-06-20] MEDS: Piperacillin/Tazobactam 4.5 GM in Sodium Chloride 0.9% 100 ML IV ONE (18:33)
[2024-06-20] MEDS: Piperacillin/Tazobactam 4.5 GM in Sodium Chloride 0.9% 100 ML IV SCH ×2 (20:40→22:57)
[2024-06-20] MEDS: metFORMIN 500 MG Tab PO SCH (20:41)
[2024-06-20] MEDS: atorvaSTATin 40 MG Tab PO SCH (21:23)
[2024-06-20] MEDS: Melatonin 3 MG Tab PO SCH (21:23)
[2024-06-20] MEDS: Saccharomyces Boulardii (Probiotic) 250 MG Cap PO SCH (21:23)
[2024-06-20] MEDS: Famotidine 20 MG Tab PO SCH (21:24)
[2024-06-20] MEDS: Beta-Carotene (Vitamin A) w/Vitamin C & E plus Minerals Tab PO SCH (21:24)
[2024-06-21 06:53] LABS: HEMATOCRIT 45.9 % (38.3-50.1); HEMOGLOBIN 15.5 g/dL (12.9-17.7); MEAN CORPUSCULAR HEMOGLOBIN 29.5 pg (27.0-33.3); MEAN CORPUSCULAR HGB CONC 33.7 g/dL (28.7-35.3); MEAN CORPUSCULAR VOLUME 87.5 fL (80.8-98.7); MEAN PLATELET VOLUME 7.6 fL (6.7-11.0); PLATELET COUNT,PLT 217 x10(3)uL (117-477); RED BLOOD CELL COUNT 5.25 x10(6)uL (3.90-5.90); RED CELL DISTRIBUTION WIDTH 14.2 % (12.4-15.0); WHITE BLOOD CELL COUNT,WBC 7.7 x10-3/uL (3.2-10.1)
[2024-06-21 06:58] LABS: BLOOD UREA NITROGEN,BUN 27 mg/dL (7-18); BUN/CREATININE RATIO 19.3 (9-20); CALCIUM 8.2 mg/dL (8.6-10.2); CARBON DIOXIDE,CO2 25 mmol/L (21-32); CHLORIDE,CL 109 mmol/L (100-110); CREATININE 1.4 mg/dL (0.70-1.30); EST CRCL DRUG DOSING (CG) 46.77 mL/min; ESTIMATED GFR 50 mL/min (>60); GLUCOSE RANDOM 149 mg/dL (80-116); POTASSIUM,K 4.5 mmol/L (3.5-5.3); SODIUM,NA 144 mmol/L (135-145)
[2024-06-21 07:14] LABS: EOSINOPHILS PERCENT MAN 1 % (0-5); LYMPHOCYTES PERCENT MAN 7 % (13-37); MONOCYTES PERCENT MAN 6 % (4-12); SEG NEUTROPHILS PERCENT MAN 86 % (46-82)
[2024-06-21] MEDS: Isosorbide Mononitrate 30 MG Tab.ER PO SCH (09:14)
[2024-06-21] MEDS: Empagliflozin 25 MG Tab PO SCH (09:15)
[2024-06-21] MEDS: Ezetimibe 10 MG Tab PO SCH (09:15)
[2024-06-21] MEDS: Lisinopril 5 MG Tab PO SCH (09:15)
[2024-06-21] MEDS: Sodium Chloride 0.9% 10 ML Syringe FLUSH PRN (09:48)
[2024-06-21] MEDS: Iopamidol 755 Mg/ML 100 ML Bottle IV SCH (15:07)
[2024-06-22 06:46] LABS: BASOPHILS PERCENT AUTO 0.7 % (0.3-3.8); EOSINOPHILS ABSOLUTE AUTO 0.4 x10-3/uL (0.0-0.6); EOSINOPHILS PERCENT AUTO 6.2 % (0.1-6.8); HEMATOCRIT 43.5 % (38.3-50.1); HEMOGLOBIN 14.4 g/dL (12.9-17.7); LYMPHOCYTES ABSOLUTE AUTO 0.9 x10-3/uL (0.5-4.5); LYMPHOCYTES PERCENT AUTO 14.5 % (15.8-45.3); MEAN CORPUSCULAR HEMOGLOBIN 29.1 pg (27.0-33.3); MEAN CORPUSCULAR HGB CONC 33.2 g/dL (28.7-35.3); MEAN CORPUSCULAR VOLUME 87.6 fL (80.8-98.7); MEAN PLATELET VOLUME 7.8 fL (6.7-11.0); MONOCYTES ABSOLUTE AUTO 0.9 x10-3/uL (0.0-1.2); MONOCYTES PERCENT AUTO 14.8 % (5.5-15.2); NEUTROPHILS ABSOLUTE AUTO 3.9 x10-3/uL (1.7-6.9); NEUTROPHILS PERCENT AUTO 63.8 % (40.3-71.8); PLATELET COUNT,PLT 216 x10(3)uL (117-477); RED BLOOD CELL COUNT 4.97 x10(6)uL (3.90-5.90); RED CELL DISTRIBUTION WIDTH 14.4 % (12.4-15.0); WHITE BLOOD CELL COUNT,WBC 6.2 x10-3/uL (3.2-10.1)
[2024-06-22 06:57] LABS: A/G RATIO 0.9; ALANINE AMINOTRANSFERASE,ALT 40 U/L (12-36); ALBUMIN 3.2 g/dL (3.2-4.6); ALKALINE PHOSPHATASE 90 IU/L (56-112); ASPARTATE AMNIOTRANSFERASE,AST 28 IU/L (5-25); BILIRUBIN TOTAL 0.8 mg/dL (0.1-1.3); BLOOD UREA NITROGEN,BUN 27 mg/dL (7-18); BUN/CREATININE RATIO 19.3 (9-20); CALCIUM 8.3 mg/dL (8.6-10.2); CARBON DIOXIDE,CO2 26 mmol/L (21-32); CHLORIDE,CL 110 mmol/L (100-110); CREATININE 1.4 mg/dL (0.70-1.30); EST CRCL DRUG DOSING (CG) 46.77 mL/min; ESTIMATED GFR 50 mL/min (>60); GLUCOSE RANDOM 128 mg/dL (80-116); POTASSIUM,K 4.2 mmol/L (3.5-5.3); PROTEIN TOTAL,TP 6.9 g/dL (6.0-8.0); SODIUM,NA 144 mmol/L (135-145)
[2024-06-22 13:15] VITALS: BP 143/78; PULSE 96
[2024-06-23 23:12] LABS: ADENOVIRUS 40/41 PCR Not Detected; ASTROVIRUS PCR Not Detected; CAMPYLOBACTER PCR Not Detected; CRYPTOSPORIDIUM PCR Not Detected; CYCLOSPORA CAYETANENSIS PCR Not Detected; ENTAMOEBA HISTOLYTICA PCR Not Detected; ENTEROAGGREGATIVE E. COLI PCR Not Detected; ENTEROPATHOGENIC E. COLI PCR Not Detected; ENTEROTOXIGENIC E. COLI PCR Not Detected; GIARDIA LAMBLIA PCR Not Detected; NOROVIRUS GI/GII PCR Detected; PLESIOMONAS SHIGELLOIDES PCR Not Detected; ROTAVIRUS A PCR Not Detected; SALMONELLA PCR Not Detected; SAPOVIRUS PCR Not Detected; SHIG/ENTEROINVASIVE E COLI PCR Not Detected; SHIGA TOXIN-PRODUC E. COLI PCR Not Detected; VIBRIO CHOLERAE PCR Not Detected; VIBRIO PCR Not Detected; YERSINIA ENTEROCOLITICA PCR Not Detected
== END 2024-06-22 10:50 | DRG 65 ==
LOC: FB.ED 14:11 → FB.MS 17:21
PROVIDERS: ADMIT Family Medicine; ATTEND Family Medicine
DX: S06.0X0A Concussion without loss of consciousness, initial encounter (principal); I60.9 Nontraumatic subarachnoid hemorrhage, unspecified; R41.0 Disorientation, unspecified; K52.9 Noninfective gastroenteritis and colitis, unspecified; N17.9 Acute kidney failure, unspecified; I44.0 Atrioventricular block, first degree; I45.2 Bifascicular block; R55 Syncope and collapse; I10 Essential (primary) hypertension; E86.0 Dehydration; E78.00 Pure hypercholesterolemia, unspecified; E11.9 Type 2 diabetes mellitus without complications; K21.9 Gastro-esophageal reflux disease without esophagitis; E11.22 Type 2 diabetes mellitus with diabetic chronic kidney disease; I12.9 Hypertensive chronic kidney disease with stage 1 through stage 4 chronic kidney disease, or unspecified chronic kidney disease; M19.90 Unspecified osteoarthritis, unspecified site; W18.30XA Fall on same level, unspecified, initial encounter; Y92.000 Kitchen of unspecified non-institutional (private) residence as the place of occurrence of the external cause; R77.8 Other specified abnormalities of plasma proteins; I25.10 Atherosclerotic heart disease of native coronary artery without angina pectoris; I95.9 Hypotension, unspecified; E83.42 Hypomagnesemia; Z79.82 Long term (current) use of aspirin; Z98.49 Cataract extraction status, unspecified eye; Z85.038 Personal history of other malignant neoplasm of large intestine; Z87.891 Personal history of nicotine dependence; Z79.01 Long term (current) use of anticoagulants; Z79.899 Other long term (current) drug therapy; Z98.890 Other specified postprocedural states; Z79.84 Long term (current) use of oral hypoglycemic drugs; Z95.5 Presence of coronary angioplasty implant and graft; Z96.659 Presence of unspecified artificial knee joint; Z96.649 Presence of unspecified artificial hip joint
CPT/HCPCS: 36415; 70450; 70496; 70498; 71045; 71260; 80048; 80053; 81001; 82947; 83605; 83735; 83880; 84443; 84484; 85025; 85379; 85610; 85730; 86140; 87086; 87088; 87186; 87230; 87507; 93005; 93010; 94150; 99223; 99238; 99285; A9270-GY; J2543; J7030; Q9967

== ENCOUNTER 2024-12-30 15:59 | Emergency (ER) | payer MEDICARE ==
[2024-12-30] MEDS ORDERED: Sodium Chloride 0.9% 10 ML Syringe FLUSH PRN (16:51)
[2024-12-30 17:08] LABS: BASOPHILS ABSOLUTE AUTO 0.1 x10-3/uL (0.0-0.3); BASOPHILS PERCENT AUTO 0.5 % (0.3-3.8); EOSINOPHILS ABSOLUTE AUTO 0.2 x10-3/uL (0.0-0.6); EOSINOPHILS PERCENT AUTO 1.5 % (0.1-6.8); LYMPHOCYTES ABSOLUTE AUTO 1.0 x10-3/uL (0.5-4.5); LYMPHOCYTES PERCENT AUTO 7.4 % (15.8-45.3); MEAN PLATELET VOLUME 7.2 fL (6.7-11.0); MONOCYTES ABSOLUTE AUTO 1.0 x10-3/uL (0.0-1.2); MONOCYTES PERCENT AUTO 7.6 % (5.5-15.2); NEUTROPHILS ABSOLUTE AUTO 10.9 x10-3/uL (1.7-6.9); NEUTROPHILS PERCENT AUTO 83.0 % (40.3-71.8); PLATELET COUNT,PLT 248 x10(3)uL (117-477); RED BLOOD CELL COUNT 5.02 x10(6)uL (3.90-5.90); RED CELL DISTRIBUTION WIDTH 13.9 % (12.4-15.0); WHITE BLOOD CELL COUNT,WBC 13.1 x10-3/uL (3.2-10.1)
[2024-12-30 17:15] LABS: BLOOD UREA NITROGEN,BUN 21 mg/dL (7-18); CARBON DIOXIDE,CO2 31 mmol/L (21-32); CHLORIDE,CL 106 mmol/L (100-110); CREATININE 1.2 mg/dL (0.70-1.30); EST CRCL DRUG DOSING (CG) 53.64 mL/min; ESTIMATED GFR 60 mL/min (>60); GLUCOSE RANDOM 146 mg/dL (80-116); POTASSIUM,K 3.9 mmol/L (3.5-5.3); SODIUM,NA 144 mmol/L (135-145)
[2024-12-30 17:22] LABS: INR 1.04 (1.00-1.24); PTT,PARTIAL THROMBOPLSTIN TIME 26.2 SECONDS (24.4-33.2)
[2024-12-30 17:23] LABS: A/G RATIO 0.9; ALANINE AMINOTRANSFERASE,ALT 26 U/L (12-36); ASPARTATE AMNIOTRANSFERASE,AST 19 IU/L (5-25); BILIRUBIN TOTAL 1.0 mg/dL (0.1-1.3); PROTEIN TOTAL,TP 7.7 g/dL (6.0-8.0)
== END 2024-12-30 19:59 | disposition home or self-care (01) ==
LOC: FB.ED 15:59
DX: S06.5X0A Traumatic subdural hemorrhage without loss of consciousness, initial encounter (principal); E11.9 Type 2 diabetes mellitus without complications; I25.10 Atherosclerotic heart disease of native coronary artery without angina pectoris; I10 Essential (primary) hypertension; E78.5 Hyperlipidemia, unspecified; I25.2 Old myocardial infarction; E78.00 Pure hypercholesterolemia, unspecified; K21.9 Gastro-esophageal reflux disease without esophagitis; Z79.899 Other long term (current) drug therapy; Z79.82 Long term (current) use of aspirin; Z79.84 Long term (current) use of oral hypoglycemic drugs; W01.198A Fall on same level from slipping, tripping and stumbling with subsequent striking against other object, initial encounter; Y93.89 Activity, other specified
CPT/HCPCS: 36415; 70450; 73060-RT; 80053; 84484; 85025; 85610; 85730; 93005; 99284